=== PATIENT | male | born 2000 | race Caucasian/White ===

== ENCOUNTER 2019-08-30 01:42 | Emergency (ER) | payer OTHER ==
--- NOTE | 2019-08-30 02:09 | ED ---
Dizziness HPI - General Chief Complaint: Dizziness Stated Complaint: Dizziness, Cant Eat Time Seen by Provider: 08/30/19 01:57 Source: patient Mode of arrival: ambulatory Limitations: no limitations - History of Present Illness Initial Comments: This patient is 19-year-old man who presents to be evaluated for a constellation of symptoms that have started over the past few days. Patient states that what is most bothering him is that he is feeling like he has a fever and he is also lightheaded and having generalized fatigue. Patient states she also has had a nonproductive cough. Symptoms have been going on for the past few days. He states that his grandmother was just admitted in the hospital for fever and cough as well. Patient denies any chest pain. No dyspnea. No purulent sputum. MD Complaint: lightheadedness -: days(s) Timing: gradual onset History of Same: No History of Trauma: No Improves With: nothing Worsens With: exertion Associated Symptoms: cough, fever/chills - Related Data Home Medications Medication Instructions Recorded Confirmed No Known Home Medications 08/31/19 08/31/19 Allergies Allergy/AdvReac Type Severity Reaction Status Date / Time No Known Allergies Allergy Verified 08/31/19 16:21 Review of Systems ROS Statement: Those systems with pertinent positive or pertinent negative responses have been documented in the HPI. ROS Other: All systems not noted in ROS Statement are negative. Constitutional: Reports: fever Eyes: Denies: eye discharge ENT: Reports: congestion. Denies: throat pain Respiratory: Reports: cough. Denies: dyspnea, wheezes Cardiovascular: Denies: chest pain, palpitations Gastrointestinal: Denies: abdominal pain, vomiting, diarrhea Genitourinary: Denies: dysuria Musculoskeletal: Denies: back pain Skin: Denies: rash Neurological: Denies: headache, weakness, numbness Past Medical History Past Medical History: No Reported History History of Any Multi-Drug Resistant Organisms: None Reported Additional Past Surgical History / Comment(s): ablation Past Psychological History: No Psychological Hx Reported Smoking Status: Never smoker Past Alcohol Use History: None Reported Past Drug Use History: None Reported General Exam Limitations: no limitations General appearance: alert Head exam: Present: atraumatic, normocephalic Eye exam: Present: normal appearance. Absent: scleral icterus, conjunctival injection ENT exam: Present: normal oropharynx Neck exam: Present: normal inspection, full ROM Respiratory exam: Present: normal lung sounds bilaterally. Absent: respiratory distress, wheezes, rales, rhonchi, stridor Cardiovascular Exam: Present: normal rhythm, tachycardia, normal heart sounds. Absent: systolic murmur, diastolic murmur, rubs, gallop GI/Abdominal exam: Present: soft. Absent: distended, tenderness, guarding, rebound, rigid Extremities exam: Present: normal inspection, normal capillary refill. Absent: pedal edema, calf tenderness Back exam: Present: normal inspection Neurological exam: Present: alert Skin exam: Present: warm, dry, intact, normal color. Absent: rash Course Vital Signs 08/30/19 08/30/19 08/30/19 01:50 02:07 03:18 Temperature 102.2 F H 99.5 F 102.8 F H Pulse Rate 112 H 118 H Respiratory 22 20 Rate Blood Pressure 127/68 136/75 O2 Sat by Pulse 94 L 95 Oximetry 08/30/19 03:58 Temperature 101.2 F H Pulse Rate 97 Respiratory 17 Rate Blood Pressure 153/97 O2 Sat by Pulse 97 Oximetry Medical Decision Making - Medical Decision Making Patient is 19-year-old man with fever and cough. Discussed that there is risk of chronic virus and explained that the test is a send out. The patient will attempt to access results to my chart or contact the hospital if he is not able to. We discussed appropriate further care and the return parameters. Also discussed self-isolation. - Lab Data Lab Results 08/30/19 Range/Units 02:00 Coronavirus (PCR) Detected H (Not Detected) Disposition Clinical Impression: Viral syndrome Disposition: HOME SELF-CARE Condition: Good Instructions (If sedation given, give patient instructions): Viral Syndrome (ED) Is patient prescribed a controlled substance at d/c from ED?: No Referrals: None,Stated [Primary Care Provider] - 1-2 days
--- NOTE | 2019-08-30 02:20 | XR ---
EXAMINATION TYPE: XR chest 2V DATE OF EXAM: 08/30/2019 COMPARISON: NONE HISTORY: Cough. Fever TECHNIQUE: FINDINGS: Heart and mediastinum are normal. Lungs are clear of infiltrate. There is no heart failure. Costophrenic angles are clear. Bony thorax is intact. IMPRESSION: No active cardiopulmonary disease.
[2019-08-30] MEDS ORDERED: IBUPROFEN 400 MG TAB PO STA (03:10)
[2019-08-30] MEDS ORDERED: ACETAMINOPHEN TAB 325 MG TAB PO STA (03:19)
[2019-08-30] MEDS ORDERED: IBUPROFEN 600 MG STARTER PACK 4 TAB BTL PO STA (03:49)
[2019-08-30 03:59] VITALS: BP 153/97; PULSE 97; RESP 17; TEMP 101.2
== END 2019-08-30 03:59 | disposition home or self-care (01) ==
LOC: EC 01:42
DX: U07.1 COVID-19 (principal)
CPT/HCPCS: 99284; 71046; U0003

== ENCOUNTER 2019-08-31 14:08 | Emergency (ER) | payer OTHER ==
--- NOTE | 2019-08-31 15:39 | ED ---
General Adult HPI - General Chief complaint: Upper Respiratory Infection Stated complaint: Cough,Fever,chest tightness Time Seen by Provider: 08/31/19 15:27 Source: patient, family, RN notes reviewed, old records reviewed Mode of arrival: wheelchair Limitations: no limitations - History of Present Illness Initial comments: 19-year-old male presents for evaluation of cough, intermittent fevers. Patient was diagnosed with COVID yesterday. He states that he was instructed to come to the emergency department by his family member who wanted him reevaluated. He does report cough and decreased appetite. He denies dyspnea. He's had intermittent fevers. He has been sick for approximately 6 days. No vomiting or diarrhea. - Related Data Home Medications Medication Instructions Recorded Confirmed No Known Home Medications 08/31/19 08/31/19 Allergies Allergy/AdvReac Type Severity Reaction Status Date / Time No Known Allergies Allergy Verified 08/31/19 16:21 Review of Systems ROS Statement: Those systems with pertinent positive or pertinent negative responses have been documented in the HPI. ROS Other: All systems not noted in ROS Statement are negative. Past Medical History Past Medical History: No Reported History History of Any Multi-Drug Resistant Organisms: None Reported Additional Past Surgical History / Comment(s): ablation Past Psychological History: No Psychological Hx Reported Smoking Status: Never smoker Past Alcohol Use History: None Reported Past Drug Use History: None Reported General Exam Limitations: no limitations General appearance: alert, in no apparent distress Head exam: Present: atraumatic, normocephalic Eye exam: Present: normal appearance, PERRL ENT exam: Present: normal exam Neck exam: Present: normal inspection. Absent: tenderness, meningismus Respiratory exam: Present: normal lung sounds bilaterally. Absent: respiratory distress, wheezes, rales, rhonchi, decreased breath sounds Cardiovascular Exam: Present: regular rate, normal rhythm GI/Abdominal exam: Present: soft. Absent: distended, tenderness, guarding, rebound Extremities exam: Present: normal inspection, normal capillary refill. Absent: pedal edema, calf tenderness Neurological exam: Present: alert, oriented X3, CN II-XII intact. Absent: motor sensory deficit Skin exam: Present: warm, dry, intact. Absent: cyanosis, diaphoretic Course Vital Signs 08/31/19 08/31/19 14:46 16:49 Temperature 98.8 F 99.1 F Pulse Rate 99 98 Respiratory 18 16 Rate Blood Pressure 113/60 134/73 O2 Sat by Pulse 97 99 Oximetry Medical Decision Making - Medical Decision Making 19-year-old male with known COVID infection presenting for reevaluation. Patient has no dyspnea, he's not been vomiting. He's had somewhat of a decreased appetite and intermittent fevers. Overall is well-appearing, in no acute distress, no respiratory distress, he is breathing room air with normal saturation. Chest x-rays repeated, negative for signs of rotavirus infection, question infiltrate however I suspect this is overlying tissue. Patient is given return parameters and will continue to quarantine himself. Disposition Clinical Impression: COVID-19 Disposition: HOME SELF-CARE Condition: Good Instructions (If sedation given, give patient instructions): Viral Syndrome (ED) Additional Instructions: Please self quarantined for 14 days. Is patient prescribed a controlled substance at d/c from ED?: No Referrals: None,Stated [Primary Care Provider] - 1-2 days Samuel Oswald [STAFF PHYSICIAN] - 1-2 days Time of Disposition: 16:59
--- NOTE | 2019-08-31 16:18 | XR ---
EXAMINATION TYPE: XR chest 1V portable DATE OF EXAM: 08/31/2019 Comparison: 08/30/2019 Clinical History: 19-year-old male cough Findings: Very low lung volumes. Vascular markings are crowded. In addition, there is large patient body habitu s causing hazy densities. The peripheral left base is underpenetrated. Patchy medial right basilar op acity could represent crowded structures. No sizable effusion seen. Impression: Limited portable view further limited by hypoventilatory changes and large body habitus. Patchy media l right basilar opacity could represent crowded structures rather than early infiltrate.
[2019-08-31 16:49] VITALS: BP 134/73; PULSE 98; RESP 16; TEMP 99.1
== END 2019-08-31 17:17 | disposition home or self-care (01) ==
LOC: EC 14:08
DX: U07.1 COVID-19 (principal)
CPT/HCPCS: 71045; 99285

== ENCOUNTER 2023-10-27 11:23 | Emergency (ER) | payer OTHER ==
[2023-10-27] MEDS ORDERED: AMOXIC-POT CLAV 875-125MG 1 EACH TAB ONE (13:04)
[2023-10-27] MEDS ORDERED: dexAMETHasone 4 MG TAB ONE (13:04)
== END 2023-10-27 14:35 | disposition left against medical advice (07) ==
LOC: EC 11:23
CPT/HCPCS: 99283

== ENCOUNTER 2024-01-04 01:57 | Emergency (ER) | payer OTHER ==
[2024-01-04 02:03] VITALS: TEMP 98.5
--- NOTE | 2024-01-04 02:29 | ED ---
Extremity Problem HPI - General Chief complaint: Extremity Injury, Lower Stated complaint: L Toe Numbness Time Seen by Provider: 01/04/24 02:04 Source: patient, RN notes reviewed Mode of arrival: ambulatory Limitations: no limitations - History of Present Illness Initial comments: This is a 23-year-old male who presents to the emergency department for numbness in his toes. States that for the last 2 to 3 weeks he has had numbness in the first, second and third toe on his left foot. Denies any injuries. States that the numbness does not go up the leg or foot, it is all localized in the toes. Denies any pain associated with this. He has not had any fevers/chills or pain in the back either. Denies any loss of bowel/bladder control or saddle ane sthesia. Patient then goes on to ask if I can prescribe him Suboxone. He states that he recently got this from a hospital in [place] and wants to know if we can give it to him here. - Related Data Home Medications Medication Instructions Recorded Confirmed No Known Home Medications 08/31/19 08/31/19 Allergies Allergy/AdvReac Type Severity Reaction Status Date / Time No Known Allergies Allergy Verified 01/04/24 02:03 Review of Systems ROS Statement: Those systems with pertinent positive or pertinent negative responses have been documented in the HPI. ROS Other: All systems not noted in ROS Statement are negative. Past Medical History Past Medical History: No Reported History History of Any Multi-Drug Resistant Organisms: None Reported Additional Past Surgical History / Comment(s): ablation Past Psychological History: No Psychological Hx Reported Smoking Status: Never smoker Past Alcohol Use History: None Reported Past Drug Use History: None Reported General Exam Limitations: no limitations General appearance: alert, in no apparent distress Head exam: Present: atraumatic, normocephalic, normal inspection Respiratory exam: Present: normal lung sounds bilaterally. Absent: respiratory distress, wheezes, rales, rhonchi, stridor Cardiovascular Exam: Present: regular rate, normal rhythm, normal heart sounds. Absent: systolic murmur, diastolic murmur, rubs, gallop, clicks Extremities exam: Present: other (No swelling, discoloration, temperature changes, or tenderness to the left foot or toes. 2+ DP and PT pulses bilaterally. Capillary refill less than 1 second.) Back exam: Present: other (No tenderness over the back. No overlying skin changes.) Neurological exam: Present: alert, oriented X3, CN II-XII intact Psychiatric exam: Present: normal affect, normal mood Skin exam: Present: warm, dry, intact, normal color. Absent: rash Course Vital Signs 01/04/24 01/04/24 02:00 02:50 Temperature 98.5 F Pulse Rate 109 H 85 Respiratory 20 16 Rate Blood Pressure 125/81 116/72 O2 Sat by Pulse 96 100 Oximetry Medical Decision Making - Medical Decision Making This is a 23-year-old male who presents to the emergency department for paresthesias in his left toes. Was pt. sent in by a medical professional or institution? @ -No Did you speak to anyone other than the patient for history? @ -No Did you review nursing and triage notes? @ -Yes, and I agree, it is accurate with regards to the patient's symptoms. Were old charts reviewed? @ -No Differential Diagnosis? @ -Nerve root compression, vascular disorder, vitamin or nutritional deficiency, diabetes mellitus, this is not meant to be an all-inclusive list. EKG interpreted by me (3pts min.)? @ -Not obtained X-rays interpreted by me (1pt min.)? @ -Not obtained CT interpreted by me (1pt min.)? @ -Not obtained U/S interpreted by me (1pt. min.)? @ -Not obtained What testing was considered but not performed? (CT, X-rays, U/S, labs)? Why? @ -None What meds were considered but not given? Why? @ -None Did you discuss the management of the patient with other professionals? @ -No Did you reconcile home meds? @ -No Was smoking cessation discussed for >3mins.? @ -No Was critical care preformed (if so, how long)? @ -No Were there social determinants of health that impacted care today? How? (Homel essness, low income, unemployed, alcoholism, drug addiction, transportation, low edu. Level, literacy, decrease access to med. care, [facility], rehab)? @ -No Was there de-escalation of care discussed even if they declined? (Discuss DNR or withdrawal of care, Hospice)? @ -No What co-morbidities impacted this encounter? (DM, HTN, Smoking, COPD, CAD, Can cer, CVA, Hep., AIDS, mental health diagnosis, sleep apnea, morbid obesity)? @ -None Was patient admitted / discharged? @ -Discharged. Physical examination of the left foot revealed no irregularities. His foot was warm and well-perfused. There were no skin changes. He had no signs of trauma. Given the duration of his symptoms and physical exam, advised that there is no imaging that would be indicated at this point. Also discussed with the patient that we do not have Suboxone here and this is not something we are able to prescribe him with. He will need to follow-up with a Suboxone clinic and he was advised to look into [place]. He was also given a list of local primary care providers to become established with for ongoing medical care and reevaluation of the paresthesias in his left foot. Patient discharged home in stable condition. Case discussed with ED attending Dr. Andrade. Return precautions reviewed in depth, the patient is instructed to return to the emergency department with any new, worsening, or concerning symptoms. Patient verbalized understanding. Undiagnosed new problem with uncertain prognosis? @ -None Drug Therapy requiring intensive monitoring for toxicity (Heparin, Nitro, Insulin, Cardizem)? @ -None Were any procedures done? @ -None Diagnosis/symptom? @ -Paresthesias of left toes Acute, or Chronic, or Acute on Chronic? @ -Acute Uncomplicated (without systemic symptoms) or Complicated (systemic symptoms)? @ -Uncomplicated Side effects of treatment? @ -None Exacerbation, Progression, or Severe Exacerbation] @ -Not applicable Poses a threat to life or bodily function? @ -No Disposition Clinical Impression: Paresthesia of foot Disposition: HOME SELF-CARE Condition: Stable Instructions (If sedation given, give patient instructions): Paresthesia (ED) Additional Instructions: Return to the emergency department with any new, worsening, or concerning symptoms. We do not have Suboxone at this facility and we are unable to prescribe it here. You will need to become established with a Suboxone clinic like the one at [facility]. Review the list of local primary care providers provided below to become established for ongoing care and further evaluation of the numbness in your toes. Is patient prescribed a controlled substance at d/c from ED?: No Referrals: None,Stated [Primary Care Provider] - 1-2 days Forms: [facility], [facility] Time of Disposition: 02:29
[2024-01-04 02:53] VITALS: BP 116/72; PULSE 85; RESP 16
== END 2024-01-04 02:56 | disposition home or self-care (01) ==
LOC: EC 01:57
DX: R20.2 Paresthesia of skin (principal)
CPT/HCPCS: 99283

== ENCOUNTER 2024-08-17 14:57 | Inpatient (IN) | payer OTHER, MEDICAID ==
--- NOTE | 2024-08-17 18:59 | ED ---
Psych HPI - General Source: patient, RN notes reviewed Mode of arrival: ambulatory <Maria G Mg - Last Filed: 08/17/24 18:58> - General Source: patient, RN notes reviewed <Yulisa Frank - Last Filed: 08/17/24 21:36> - General Chief Complaint: Psychiatric Symptoms Stated Complaint: Mental health eval Time Seen by Provider: 08/17/24 16:09 - History of Present Illness Initial Comments: Quick note: 23-year-old male presented the ER for mental health evaluation. Patient mitts to with plan. (Maria G Mg) 23-year-old male presenting for suicidal ideation x 3 days. States he is hearing voices inside of his head telling him to kill himself. States he contemplated overdosing today but ultimately decided against it. Also is thinking about slicing his wrists. States it has been about 4 years since he has experienced the symptoms. Admits to using illicit drugs however states it has been over a week and a half since last use. Denies homicidal ideation. (Yulisa Frank) - Related Data Home Medications Medication Instructions Recorded Confirmed No Known Home Medications 08/31/19 08/31/19 Allergies Allergy/AdvReac Type Severity Reaction Status Date / Time No Known Allergies Allergy Verified 04/24/24 18:17 Review of Systems ROS Other: All systems not noted in ROS Statement are negative. <Maria G Mg - Last Filed: 08/17/24 18:58> ROS Other: All systems not noted in ROS Statement are negative. <Yulisa Frank - Last Filed: 08/17/24 21:36> ROS Statement: Those systems with pertinent positive or pertinent negative responses have been documented in the HPI. Past Medical History Past Medical History: Hypertension Additional Past Medical History / Comment(s): insomnia History of Any Multi-Drug Resistant Organisms: None Reported Additional Past Surgical History / Comment(s): ablation Past Psychological History: ADD/ADHD, Bipolar Smoking Status: Never smoker Past Alcohol Use History: None Reported Past Drug Use History: None Reported <Maria G Mg - Last Filed: 08/17/24 18:58> General Exam Limitations: no limitations <Maria G Mg - Last Filed: 08/17/24 18:58> General appearance: alert, in no apparent distress Head exam: Present: atraumatic, normocephalic, normal inspection Eye exam: Present: normal appearance, PERRL, EOMI. Absent: scleral icterus, conjunctival injection, periorbital swelling Neurological exam: Present: alert, oriented X3, CN II-XII intact Psychiatric exam: Present: normal affect, normal mood, suicidal ideation. Absent: homicidal ideation Skin exam: Present: warm, dry, intact, normal color. Absent: rash <Yulisa Frank - Last Filed: 08/17/24 21:36> - General Exam Comments Initial Comments: Visual Physical Exam Vital signs reviewed General: Well-appearing, nontoxic, no acute distress. Head: Normocephalic, atraumatic Eyes: PERRLA, EOMI ENT: Airway patent Chest: Nonlabored breathing Skin: No visual rash, normal skin tone Neuro: Alert and oriented 3 Musculoskeletal: No gross abnormalities (Maria G Mg) Course Vital Signs 08/17/24 15:00 Temperature 98 F Pulse Rate 68 Respiratory 16 Rate Blood Pressure 133/73 O2 Sat by Pulse 98 Oximetry Medical Decision Making <Maria G Mg - Last Filed: 08/17/24 18:58> <Yulisa Frank - Last Filed: 08/17/24 21:36> - Medical Decision Making I performed the quick note portion of this chart. Electronically signed by Maria G Mg PA-C (Maria G Mg) Was pt. sent in by a medical professional or institution (RUPAL Irvin, PATTERN ROOM ATTENDANT, urgent care, hospital, or skilled nursing...) When possible be specific @ -No Did you speak to anyone other than the patient for history (EMS, parent, family, police, friend...)? What history was obtained from this source @ -No Did you review nursing and triage notes (agree or disagree)? Why? @ -I reviewed and agree with nursing and triage notes Were old charts reviewed (outside hosp., previous admission, EMS record, old EKG, old radiological studies, urgent care reports/EKG's, skilled nursing records)? Report findings @ -No old charts were reviewed Differential Diagnosis (chest pain, altered mental status, abdominal pain women, abdominal pain men, vaginal bleeding, weakness, fever, dyspnea, syncope, headache, dizziness, GI bleed, back pain, seizure, CVA, palpatations, mental health, musculoskeletal)? @ -Differential Mental Health Depression, anxiety, bipolar, psychosis, schizophrenia, borderline personality, situational depression, adjustment disorder, behavioral disorder, brain tumor, malingering, substance abuse, encephalopathy, medication reaction, dementia, hypothyroidism, degenerative neurologic disorder, lupus.... This is not meant to be all-inclusive list EKG interpreted by me (3pts min.). @ -None X-rays interpreted by me (1pt min.). @ -None done CT interpreted by me (1pt min.). @ -None done U/S interpreted by me (1pt. min.). @ -None done What testing was considered but not performed or refused? (CT, X-rays, U/S, labs)? Why? @ -None What meds were considered but not given or refused? Why? @ -None Did you discuss the management of the patient with other professionals (professionals i.e. , PA, PATTERN ROOM ATTENDANT, lab, RT, psych nurse, social worker clinical, family lawyer, teacher, neighborhood conservation officer, case assembler)? Give summary @ -I spoke with EPS who determined patient does meet inpatient criteria for psychiatric admission at this time Was smoking cessation discussed for >3mins.? @ -No Was critical care preformed (if so, how long)? @ -No Were there social determinants of health that impacted care today? How? (Homelessness, low income, unemployed, alcoholism, drug addiction, transportation, low edu. Level, literacy, decrease access to med. care, [facility], rehab)? @ -No Was there de-escalation of care discussed even if they declined (Discuss DNR or withdrawal of care, Hospice)? DNR status @ -No What co-morbidities impacted this encounter? (DM, HTN, Smoking, COPD, CAD, Cancer, CVA, ARF, Chemo, Hep., AIDS, mental health diagnosis, sleep apnea, morbid obesity)? @ -None Was patient admitted / discharged? Hospital course, mention meds given and route, prescriptions, significant lab abnormalities, going to OR and other pertinent info. @ -23-year-old male presenting for suicidal ideation x 3 days. States he is hearing voices inside of his head telling him to kill himself. No other medical complaints at this time. Patient is medically cleared to be seen by EPS. Patient was evaluated by EPS who determined patient does meet inpatient criteria for psychiatric admission at this time. I agree with this plan. Patient signed himself in voluntarily. Case was discussed with my ED attending Dr. Sanabria Undiagnosed new problem with uncertain prognosis? @ -No Drug Therapy requiring intensive monitoring for toxicity (Heparin, Nitro, Insulin, Cardizem)? @ -[No Were any procedures done? @ -No Diagnosis/symptom? @ -Suicidal ideation Acute, or Chronic, or Acute on Chronic? @ - acute Uncomplicated (without systemic symptoms) or Complicated (systemic symptoms)? @ -Complicated Side effects of treatment? @ -No Exacerbation, Progression, or Severe Exacerbation? @ -No Poses a threat to life or bodily function? How? (Chest pain, USA, DC, pneumonia, PE, COPD, DKA, ARF, appy, cholecystitis, CVA, Diverticulitis, Homicidal, Suicidal, threat to staff... and all critical care pts) @ -Yes, suicidal (Yulisa Frank) - Lab Data Lab Results 08/17/24 Range/Units 20:01 Urine Opiates Screen Not Detected (NotDetected) Ur Oxycodone Screen Not Detected (NotDetected) Urine Methadone Screen Not Detected (NotDetected) Ur Barbiturates Screen Not Detected (NotDetected) U Tricyclic Antidepress Not Detected (NotDetected) Ur Phencyclidine Scrn Not Detected (NotDetected) Ur Amphetamines Screen Not Detected (NotDetected) U Methamphetamines Scrn Detected H (NotDetected) U Benzodiazepines Scrn Not Detected (NotDetected) Urine Cocaine Screen Not Detected (NotDetected) U Marijuana (THC) Screen Not Detected (NotDetected) Disposition <Maria G Mg - Last Filed: 08/17/24 18:58> Time of Disposition: 21:36 <Yulisa Frank - Last Filed: 08/17/24 21:36> Clinical Impression: Suicidal ideation Disposition: ADMITTED IP TO THIS HOSP Referrals: None,Stated [Primary Care Provider] - 1-2 days
[2024-08-17 20:52] LABS: Amphetamine Screen,Urine Not Detected (NotDetected); Barbiturate Screen,Urine Not Detected (NotDetected); Benzodiazepines Screen,Urine Not Detected (NotDetected); Cocaine Screen,Urine Not Detected (NotDetected); Methadone Screen, Urine Not Detected (NotDetected); Opiate Screen,Urine Not Detected (NotDetected); Oxycodone Screen, Urine Not Detected (NotDetected); Phencyclidine Screen,Urine Not Detected (NotDetected); Tricyclic Antidepressant,Urine Not Detected (NotDetected); Urn Cannabinoid Scrn Not Detected (NotDetected)
[2024-08-17 22:12] LABS: Influenza A Not Detected (Not Detectd); Influenza B Not Detected (Not Detectd); RSV Not Detected (Not Detectd)
[2024-08-18] MEDS ORDERED: haloperidoL 5 MG TAB PO PRN (00:55)
[2024-08-18] MEDS ORDERED: MAG HYDROX/AL HYDROX/SIMETH 355 ML BOTTLE PO PRN (00:55)
[2024-08-18] MEDS ORDERED: LORazepam 1 MG/0.5 ML VIAL IM PRN (00:55)
[2024-08-18] MEDS ORDERED: ACETAMINOPHEN TAB 325 MG TAB PO PRN (00:55)
[2024-08-18] MEDS ORDERED: HALOPERIDOL LACTATE 5 MG/ML 1 ML VIAL IM PRN (00:55)
[2024-08-18] MEDS ORDERED: MAGNESIUM HYDROXIDE 2,400 MG/30 ML CUP PO PRN (00:55)
[2024-08-18] MEDS: NICOTINE 14MG/24HR PATCH TRANSDERM SCH (09:43)
[2024-08-18 10:31] LABS: Appearance,Urine Clear (Clear); Bilirubin,Urine Negative (Negative); Blood,Urine Negative (Negative); Color,Urine Colorless; Glucose,Urine (UA) Negative (Negative); Ketones,Urine Negative (Negative); Leukocyte Esterase,Urine Small (Negative); Mucus,Urine Rare /hpf; Nitrite,Urine Negative (Negative); Protein,Urine Negative (Negative); RBC,Urine 2 /hpf (0-5); Specific Gravity,Urine 1.023 (1.001-1.035); Urobilinogen,Urine <2.0 mg/dL (<2.0); WBC,Urine 42 /hpf (0-5)
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
[2024-08-18] MEDS: SERTRALINE 50 MG TAB PO SCH (12:34)
--- NOTE | 2024-08-19 10:12 | P.PN ---
Progress Note - Text Progress Note Date: 08/19/24 Chief complaint: Suicidal thoughts Interval History: Patient was seen wandering the hallways and was directable and agreeable to speak with writer technical publications in the office. The patient notes that today he is not having any thoughts of killing himself or harming others. He notes that his depression is still there but it is currently mild. He denies any ongoing anxiety. He states that he is not having the voices any more or seeing things. He notes that he is not paranoid. When asking about sleep he notes "a little bit". He notes that his energy and appetite have not changed since yesterday. He had stated that his concentration is not good. We did attempt to contact the patient's grandmother for a conference call however there was a busy signal. Mental Status Exam: General Appearance: Patient appears to be stated age is alert, directable, and cooperative. Behavior: Patient is calmly seated without any agitated behavior. Speech: Speech was improved from yesterday where patient had trouble getting out of his words and was able to formulate his words better. Mood/Affect: Mood is improving mildly, affect is congruent and constricted. Suicidality/Homicidality: Patient denies having any suicidal or homicidal ideation intent or plan. Perceptions: Patient denies any visual hallucinations and denies any auditory hallucinations Though content/process: There is no evidence of any delusional thought content and thought process is linear and goal-directed. Memory and concentration: AOX3, grossly intact for the purposes of this session Judgment and insight: Improving mildly Diagontic Major depressive disorder recurrent severe Generalized anxiety disorder Methamphetamine use disorder R/O Intellectual disability Assessment: Patient appears to be doing better today could be due to the structure environment. There are concerns of discharging him with him decompensating and returning to the emergency room. Disposition plan needs to be with housing or long term including unit. PLAN: -Patient is admitted under voluntary status to MHU for stabilization of psychiatric symptoms and safety. Patient has signed adult voluntary form and medication consent and is placed in patient's chart. -Medications : Continue Zoloft 50 mg take 1 tablet by mouth once daily for depression/anxiety -Ativan and Haldol PRN for agitation/aggression -Patient was counselled on substance abuse and desired to cut back on use -Will offer patient subtance use rehab -Patient was informed of the risks, benefits and side effects of the medication and patient verbally consented to taking the medications. Patient signed med consent form and was placed in chart. -Internal Medicine consult to perform medical evaluation and physical. -NRT -not needed as patient does not smoke -SW on board for discharge planning. Encourage patient to participate in groups to work on coping skills.
--- NOTE | 2024-08-19 10:23 | P.PN ---
Progress Note - Text Progress Note Date: 08/19/24 Chief complaint: Suicidal-homicidal Interval History: Patient was seen wandering the hallways and was directable and agreeable to speak with communications writer in the office. The patient was very emotional today and broke out into tears. He notes that this was precipitated by groups where he felt like he does not help anybody. Then the patient notes that he wanted to go on the and his mother sabotaged it. The patient focused on how his mother wants his life. He currently rates his depression 6/10 and his anxiety 0/10. He denies any anger issues. He denies any suicidal or homicidal ideations. He was unable to discuss how much sleep he got last night. He he notes that his energy is good but has stated that he has a decline in his appetite as well as concentration. Overall he states he feels "a bit slow". Mental Status Exam: General Appearance: Patient appears to be stated age is alert, directable, and cooperative. Behavior: The patient was very emotional and tearful Speech: Patient's speech is fluent and nonpressured. Mood/Affect: Mood is declined, affect is congruent and constricted. Suicidality/Homicidality: Patient denies having any suicidal or homicidal ideation intent or plan. Perceptions: Patient denies any visual hallucinations and denies any auditory hallucinations Though content/process: There is no evidence of any delusional thought content and thought process is linear and goal-directed. Memory and concentration: AOX3, grossly intact for the purposes of this session Judgment and insight: Improving mildly Diagontic Major depressive disorder recurrent severe Generalized anxiety disorder Methamphetamine use disorder R/O Intellectual disability Assessment: Patient became very emotional in group when he was processing them projected his anger towards his mother. Patient does not appear to be completely stable at this point and would be at risk if discharged at this time. PLAN: -Patient is admitted under voluntary status to MHU for stabilization of psychiatric symptoms and safety. Patient has signed adult voluntary form and medication consent and is placed in patient's chart. -Medications : Continue Zoloft 50 mg take 1 tablet by mouth once daily for depression/anxiety -Ativan and Haldol PRN for agitation/aggression -Patient was counselled on substance abuse and desired to cut back on use -Will offer patient subtance use rehab -Patient was informed of the risks, benefits and side effects of the medication and patient verbally consented to taking the medications. Patient signed med consent form and was placed in chart. -Internal Medicine consult to perform medical evaluation and physical. -NRT -not needed as patient does not smoke -SW on board for discharge planning. Encourage patient to participate in groups to work on coping skills.
[2024-08-19] MEDS: BENZOCAINE 20 % GEL 11.9 GM TUBE MM ONE (20:06)
[2024-08-20] MEDS: BENZOCAINE 20 % GEL 11.9 GM TUBE MM PRN (10:47)
--- NOTE | 2024-08-20 11:39 | P.PN ---
Progress Note - Text Progress Note Date: 08/20/24 Chief complaint: Suicidal Interval History: Patient was seen wandering the hallways and was directable and agreeable to speak with display card writer in the office. The patient notes that he is doing "okay". He denies any side effects with the Zoloft. He notes that he has not been attending groups because nobody tells him. He denies any feeling of depression or anxiety at this time. He notes that he is sleeping throughout the night but has to take naps during the day. He denies any problems with energy, appetite or concentration. He denies any suicidal or homicidal ideations. We did try to contact his grandmother for a conference call twice today however there was no answer. The patient notes that he has an unknown meeting at 2 PM on Thursday that he was informed about by his girl. Mental Status Exam: General Appearance: The patient presented to his stated age, dressed appropriately and groomed Behavior: Patient is calmly seated without any agitated behavior. Speech: Patient's speech is fluent and nonpressured. Mood/Affect: Mood is improving mildly, affect is congruent and constricted. Suicidality/Homicidality: Patient denies having any suicidal or homicidal ideation intent or plan. Perceptions: Patient denies any visual hallucinations and denies any auditory hallucinations Though content/process: There is no evidence of any delusional thought content and thought process is linear and goal-directed. Memory and concentration: AOX3, grossly intact for the purposes of this session Judgment and insight: Improving mildly Diagontic Major depressive disorder recurrent severe Generalized anxiety disorder Methamphetamine use disorder R/O Intellectual disability Assessment: The patient is doing better today and appears that he is stabilizing. We continue to try to get collateral information from the patient's grandmother. It appears that he has an intake appointment at 2 PM on Thursday which needs clarification. Complete hospitalization and transition to community mental health upon discharge. PLAN: -Patient is admitted under voluntary status to MHU for stabilization of psychiatric symptoms and safety. Patient has signed adult voluntary form and medication consent and is placed in patient's chart. -Medications : Continue Zoloft 50 mg take 1 tablet by mouth once daily for depression/anxiety -Ativan and Haldol PRN for agitation/aggression -Patient was counselled on substance abuse and desired to cut back on use -Will offer patient subtance use rehab -Patient was informed of the risks, benefits and side effects of the medication and patient verbally consented to taking the medications. Patient signed med consent form and was placed in chart. -Internal Medicine consult to perform medical evaluation and physical. -NRT -not needed as patient does not smoke -SW on board for discharge planning. Encourage patient to participate in groups to work on coping skills.
[2024-08-20] MEDS: IBUPROFEN 600 MG TAB PO PRN (17:11)
[2024-08-21 09:08] VITALS: RESP 18
--- NOTE | 2024-08-21 10:44 | P.PN ---
Progress Note - Text Progress Note Date: 08/21/24 Chief complaint: Suicidal thoughts Interval History: Patient was seen wandering the hallways and was directable and agreeable to speak with narrative writer in the office. While patient was present we called his grandmother Simona who answered. She confirmed that the patient has intellectual disability high functioning. She also noted that the patient once he gets his disability check people go to him in order to get money so they could use drugs. She notes that he has an appointment at [facility] for an interview to get placement. Patient notes that he is doing "okay". He denies any ongoing depression or anxiety. He notes that he is getting too much sleep. He denies any problems with energy, appetite or concentration. At this time patient denies any suicidal or homical ideations, intent or plan. Patient denies any auditory, visual hallucinations and denies any paranoia or delusions. Patient denies any side effects from the medications and has been compliant with meds. Mental Status Exam: General Appearance: Patient appears to be stated age is alert, directable, and c ooperative. Behavior: Patient is calmly seated without any agitated behavior. Speech: Patient's speech is fluent and nonpressured. Mood/Affect: Mood is improving mildly, affect is congruent and constricted. Suicidality/Homicidality: Patient denies having any suicidal or homicidal ideation intent or plan. Perceptions: Patient denies any visual hallucinations and denies any auditory hallucinations Though content/process: There is no evidence of any delusional thought content and thought process is linear and goal-directed. 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 Assessment: Patient appears to be stabilizing at this point and is felt that he does need a payee but the patient is extremely resistant to this. He does have an appointment tomorrow for the longterm at [facility] at 2 PM. PLAN: -Patient is admitted under voluntary status to MHU for stabilization of psychiatric symptoms and safety. Patient has signed adult voluntary form and medication consent and is placed in patient's chart. -Medications : Continue Zoloft 50 mg take 1 tablet by mouth once daily for depression/anxiety -Ativan and Haldol PRN for agitation/aggression -Patient was counselled on substance abuse and desired to cut back on use -Will offer patient subtance use rehab -Patient was informed of the risks, benefits and side effects of the medication and patient verbally consented to taking the medications. Patient signed med consent form and was placed in chart. -Internal Medicine consult to perform medical evaluation and physical. -NRT -not needed as patient does not smoke -SW on board for discharge planning. Encourage patient to participate in groups to work on coping skills.
--- NOTE | 2024-08-21 15:19 | P.MDCNMH ---
History of Present Illness H&P Date: 08/21/24 Chief Complaint: Medical consult 23-year-old man with medical history of obesity class I, major depressive disorder presented for mental health evaluation. Medicine was consulted for medical management. Patient has no complaints at this time and does not take any chronic medications. He does require establishment with a PCP upon discharge. Review of systems is negative. Patient is hemodynamically stable. Urine tox screen is positive for methamphetamine, urinalysis shows 42 white blood cells, small leukocyte esterase, otherwise unremarkable. Influenza A, B, RSV, COVID are negative. Gen: in no apparent distress, resting comfortably in bed Eyes: PERRL, no scleral injection or icterus HENT: normocephalic, atraumatic, good hearing acuity, moist mucous membranes Neck: no tracheal deviation, full range of motion Resp: good air exchange, breathing comfortably with no accessory muscle use, no tactile fremitus CVS: good distal perfusion x 4, no pitting edema GI: soft, NTTP, ND, no hepatosplenomegaly : no suprapubic tenderness, no CVAT, dimas catheter not present MSK: no clubbing, no cyanosis, no noted contractures of extremities Skin: no noted rashes, petechiae; temperature of skin is appropriate Neuro: moving all extremities without signs of weakness, CN II-XII intact Psych: cooperative, euthymic mood, insight and judgment intact Assessment/plan: Obesity class I -Lifestyle modification education upon discharge - Outpatient follow-up and establishment with PCP Methamphetamine abuse - Cessation counseling Thank you for this consult. Please feel free to reach out with any questions or concerns. Past Medical History Past Medical History: Hypertension Additional Past Medical History / Comment(s): insomnia History of Any Multi-Drug Resistant Organisms: None Reported Additional Past Surgical History / Comment(s): ablation Past Anesthesia/Blood Transfusion Reactions: No Reported Reaction Past Psychological History: ADD/ADHD, Bipolar Smoking Status: Never smoker Past Alcohol Use History: None Reported Past Drug Use History: None Reported Medications and Allergies Home Medications Medication Instructions Recorded Confirmed Type No Known Home Medications 08/31/19 08/31/19 History Allergies Allergy/AdvReac Type Severity Reaction Status Date / Time No Known Allergies Allergy Verified 04/24/24 18:17 Physical Exam Osteopathic Statement: *. No significant issues noted on an osteopathic structural exam other than those noted in the History and Physical/Consult. Vitals: Vital Signs Temp Pulse Resp BP Pulse Ox 08/21/24 09:00 96.9 F L 116 H 18 107/60 98 08/20/24 21:00 97.5 F L 96 17 113/73 100 Cranial Nerve Examination - Cranial Nerves Cranial Nerve II- Optic: Intact Cranial Nerve III- Oculomotor: Intact Cranial Nerve IV- Trochlear: Intact Cranial Nerve V- Trigeminal: Intact Cranial Nerve - Abducens: Intact Cranial Nerve VII- Facial: Intact Cranial Nerve VIII- Auditory: Intact Cranial Nerve IX- Glossopharyngeal: Intact Cranial Nerve X- Vagus: Intact Cranial Nerve XI- Accessory: Intact Cranial Nerve XII- Hypoglossal: Intact
[2024-08-21] MEDS: LORazepam 1 MG TAB PO PRN (20:50)
[2024-08-22 08:09] VITALS: BP 116/77; PULSE 95; TEMP 97.6
--- NOTE | 2024-08-22 09:55 | P.DS ---
Providers Date of admission: 08/18/24 00:45 Admission HPI: Admission note was completed by Dr. Parra "The patient presented to the hospital voicing that he was having suicidal thoughts and auditory hallucinations telling him to kill himself. The patient denies any auditory or visual hallucinations. He does note that he was having suicidal thoughts. He notes that he had a plan of overdosing on his medication when he started thinking about his grandmother and did not do it. He is kind of ambiguous about whether he is regretful of this. He notes that he might harm himself if he left today. UDS was positive for methamphetamines but the patient has adamant that he has not used any methamphetamines for 1.5 months. Patient notes that he is currently depressed because he has no place to live and lives with regret. Patient currently rates his depression 5/10 and his anxiety 9/10 with 10 being worst. He notes that he struggles with his sleep and only gets 6 to 7 hours at night. He feels fatigued and rundown. He notes that he struggles with his concentration. He notes that his appetite is normal. He feels hopeless. He denies any crying but notes that he has feelings of guilt. He denies any suicidal or homicidal ideations." Hospital course: Upon admission to the unit patient was directable and agreeable to commence joel atment and signed adult voluntary form. Patient got along well with other patients on the unit and followed unit protocol. Patient was compliant with the medications and denied any side effects throughout hospital course. Patient was started on Zoloft 50 mg to target anxiety and depression. Patient spoke of his stressors and engaged in therapy both group and individual. Patient was also seen by medical team for history and physical exam. Throughout the course of the hospitalization patient gradually improved with regards to mood, anxiety, sleep and returned back to their baseline level of functioning became more future oriented with improved insight and judgment. On the day of discharge patient denied any suicidal or homicidal ideations intent or plan denied any auditory or visual hallucinations. Patient endorsed wanting to live for their health and family. The patient denied any access to guns or weapons. Patient denied any paranoia and did not endorse any delusions. Patient does have a significant history of substance abuse and was counseled on abstaining from all substances including alcohol and marijuana. Patient was offered however declined inpatient substance-abuse rehab. Patient was also counseled on the medications and need for regular compliance and was encouraged to follow-up with their outpatient appointment for mental health and also for primary care. Prior to discharge a family meeting will be arranged by aids social worker to answer any questions and ensure safety upon discharge incuding making sure that guns/weapons are either removed from the home or locked away.. Discharge patient was reminded that using meth, coke or cannabis was he wants to be readmitted. He denies any suicidal or homicidal ideations. He was able to voice a safety plan including 911, [phone] and 100 nearest emergency room was. He notes no depression or anxiety. He denied any problems with sleep, energy, appetite or concentration. Plans are that he follows up with his grandmother at the [facility] for an appointment at 2 PM for possible admission. Mental status exam: General Appearance: Patient appears to be his stated age is alert, pleasant, and cooperative. Patient is in no acute distress and has improved hygiene and grooming Behavior: Patient is calmly seated without any agitated behavior. Speech: Patient's speech is fluent and nonpressured. Mood/Affect: Patient reports their mood is "better good", affect is congruent and euthymic. Suicidality/Homicidality: Patient denies having any suicidal or homicidal ideation intent or plan. Perceptions: Patient denies any auditory or visual hallucinations. Though content/process: There is no evidence of any delusional thought content and thought process is linear and goal-directed. More future oriented Memory and concentration: AOX3, grossly intact for the purposes of this session. Can spell "WORLD" backwards correctly. Judgment and insight: Chronically poor, however has improved with guarded progn osis Diagontic Major depressive disorder recurrent mild Generalized anxiety disorder Methamphetamine use disorder Intellectual disability high functioning. Plan: -Continue with discharge today as patient has improved and stabilized psychiatrically and is not currently an imminent threat to themself and/or others. Patient will remain at chronically elevated risk for harm to self and/or others due to their impulsivity and substance abuse. -Continue medications: Zoloft 50 mg take 1 tablet by mouth once daily for depression/anxiety -Patient was counseled on the need for medication compliance and appropriate follow-up at mental health and also primary care for medical issues. Patient verbalized understanding and agreed. -Social work to help coordinate patients discharge today arrange for and conduct family meeting to ensure safety upon discharge and answer any questions/concerns. also to ensure safe home environment that guns/weapons are either removed from the home or locked away. Social work also to arrange for patients follow up appointments with [facility] for psychiatric care along with follow up with primary care provider. -Patient counseled on abstaining from recreational drugs and marijuana and alcohol. Was informed/educated on the adverse effects on their physical and mental health. Patient verbally agreed and understood. Patient was offered substance abuse treatment however declined at this time. -Patient was instructed to return to the hospital or seek immediate medical care if their psychiatric or medical symptoms do worsen or reoccur. Attending physician: Ibrahima Jesus MD Consults: 08/18/24 00:55 Consult Physician Routine Consulting Provider: Max Physician Consult Reason/Comments: Medical H&P Do you want consulting provider notified?: Yes Primary care physician: Stated None Plan - Discharge Summary Discharge Rx Participant: Yes New Discharge Prescriptions: No Action No Known Home Medications Discharge Medication List No Known Home Medications 08/31/19 [History] Follow up Appointment(s)/Referral(s): None,Stated [Primary Care Provider] - 1-2 days Activity/Diet/Wound Care/Special Instructions: Avoid the use of street drugs and alcohol. Take all medications as prescribed. When you are in need of refills on your medications, please contact your medical provider and/or outpatient psychiatrist/provider to have this done. Please go to your scheduled outpatient appointment for aftercare treatment. If symptoms return or become worse, call the crisis line at and/or go to the nearest emergency room for evaluation. National Suicide Hotline [address] [facility] confidentiality statement: "The information contained in this communication, including attachments, is confidential, may be privileged, and is intended only for the use of the named recipient(s). Unauthorized use, disclosure, forwarding or copying is strictly prohibited and may be unlawful. If you have received this communication in error, please notify me IMMEDIATELY at the phone number or pager listed above.
[2024-08-22] MEDS ORDERED: LORazepam 2 MG/ML INJ IM PRN (10:51)
== END 2024-08-22 11:51 | disposition home or self-care (01) | DRG 885 ==
LOC: EC 14:57 → 3MHU 08-18 00:45
PROVIDERS: ADMIT Psychiatry & Neurology Psychiatry; ATTEND Psychiatry & Neurology Psychiatry
DX: F33.0 Major depressive disorder, recurrent, mild (principal); Z59.01 Sheltered homelessness; R45.851 Suicidal ideations; F15.10 Other stimulant abuse, uncomplicated; E66.811 Obesity, class 1; I10 Essential (primary) hypertension; R44.0 Auditory hallucinations; F90.9 Attention-deficit hyperactivity disorder, unspecified type; G47.00 Insomnia, unspecified; F41.1 Generalized anxiety disorder; F79 Unspecified intellectual disabilities; Z68.33 Body mass index [BMI] 33.0-33.9, adult; Z62.810 Personal history of physical and sexual abuse in childhood; Z79.899 Other long term (current) drug therapy; Z91.51 Personal history of suicidal behavior; Z71.51 Drug abuse counseling and surveillance of drug abuser; Z11.52 Encounter for screening for COVID-19; Z28.310 Unvaccinated for COVID-19
CPT/HCPCS: 80306; 81001; 82075; 87636; 99285

== ENCOUNTER 2024-08-26 20:28 | Emergency (ER) | payer OTHER ==
[2024-08-26 21:35] VITALS: RESP 18
--- NOTE | 2024-08-26 22:15 | ED ---
Psych HPI - General Source: patient Mode of arrival: ambulatory - History of Present Illness MD Complaint: suicidal ideation, feels depressed Onset/Timin -: days(s) Associated Psychiatric Symptoms: depression, suicidal ideation History of same: Yes Quality: getting worse Improves With: none Worsens With: drug use Context: recent drug abuse Associated Symptoms: denies other symptoms <Iván Holt - Last Filed: 08/26/24 22:19> <Mukul Koch - Last Filed: 08/27/24 10:23> - General Chief Complaint: Psychiatric Symptoms Stated Complaint: Mental Health Time Seen by Provider: 08/26/24 21:39 - History of Present Illness Initial Comments: This patient is a 24-year-old man with history of previous mood disorder who states that he has been feeling more depression since this morning and having suicidal thoughts. The patient states that he had been in the hospital for similar complaints last week. He had a recurrence of symptoms after he had done meth a few days ago and has not been sleeping well. (Iván Holt) - Related Data Previous Rx's Medication Instructions Recorded Sertraline [Zoloft] 50 mg PO DAILY 30 Days #30 tab 08/22/24 Allergies Allergy/AdvReac Type Severity Reaction Status Date / Time No Known Allergies Allergy Verified 08/26/24 21:32 Review of Systems ROS Other: All systems not noted in ROS Statement are negative. Constitutional: Denies: fever, chills, weakness Eyes: Denies: vision change Respiratory: Denies: cough, dyspnea Cardiovascular: Denies: chest pain, palpitations, edema Gastrointestinal: Denies: abdominal pain, nausea, vomiting Genitourinary: Denies: dysuria, hematuria Musculoskeletal: Denies: back pain Skin: Denies: rash Neurological: Denies: headache, weakness Psychiatric: Reports: depression, suicidal thoughts. Denies: auditory hallucinations, visual hallucinations, homicidal thoughts <Iván Holt - Last Filed: 08/26/24 22:19> ROS Other: All systems not noted in ROS Statement are negative. <Mukul Koch - Last Filed: 08/27/24 10:23> ROS Statement: Those systems with pertinent positive or pertinent negative responses have been documented in the HPI. Past Medical History Past Medical History: Hypertension Additional Past Medical History / Comment(s): insomnia History of Any Multi-Drug Resistant Organisms: None Reported Additional Past Surgical History / Comment(s): ablation Past Anesthesia/Blood Transfusion Reactions: No Reported Reaction Past Psychological History: ADD/ADHD, Bipolar Smoking Status: Never smoker Past Alcohol Use History: None Reported Past Drug Use History: None Reported <Iván Holt - Last Filed: 08/26/24 22:19> General Exam Limitations: no limitations General appearance: alert, in no apparent distress Head exam: Present: atraumatic, normocephalic Eye exam: Present: normal appearance. Absent: scleral icterus, conjunctival injection Neck exam: Present: normal inspection Respiratory exam: Present: normal lung sounds bilaterally. Absent: respiratory distress, wheezes, rales, rhonchi, stridor, accessory muscle use Cardiovascular Exam: Present: regular rate, normal rhythm, normal heart sounds. Absent: systolic murmur, diastolic murmur, rubs, gallop GI/Abdominal exam: Present: soft. Absent: distended, tenderness, guarding, rebound Extremities exam: Present: normal inspection, normal capillary refill. Absent: pedal edema, calf tenderness Back exam: Present: normal inspection Neurological exam: Present: alert Psychiatric exam: Present: depressed, suicidal ideation. Absent: agitated, anxious, homicidal ideation Skin exam: Present: warm, dry, intact, normal color. Absent: rash <Iván Holt - Last Filed: 08/26/24 22:19> Course Vital Signs 08/26/24 08/27/24 21:33 02:00 Temperature 97.3 F L Pulse Rate 62 68 Respiratory 18 18 Rate Blood Pressure 120/78 115/70 O2 Sat by Pulse 98 97 Oximetry Medical Decision Making <CatarinokasiIván - Last Filed: 08/26/24 22:19> <Mukul Koch - Last Filed: 08/27/24 10:23> - Medical Decision Making Was pt. sent in by a medical professional or institution (, PA, IP COUNSEL, urgent care, hospital, or jail...) When possible be specific @ -[No] Did you speak to anyone other than the patient for history (EMS, parent, family, police, friend...)? What history was obtained from this source @ -[No] Did you review nursing and triage notes (agree or disagree)? Why? @ -[I reviewed and agree with nursing and triage notes] Were old charts reviewed (outside hosp., previous admission, EMS record, old EKG, old radiological studies, urgent care reports/EKG's, jail records)? Report findings @ -[No old charts were reviewed] Differential Diagnosis (chest pain, altered mental status, abdominal pain women, abdominal pain men, vaginal bleeding, weakness, fever, dyspnea, syncope, headache, dizziness, GI bleed, back pain, seizure, CVA, palpatations, mental health, musculoskeletal)? @ -[Differential Mental Health Depression, anxiety, bipolar, psychosis, schizophrenia, borderline personality, situational depression, adjustment disorder, behavioral disorder, brain tumor, malingering, substance abuse, encephalopathy, medication reaction, dementia, hypothyroidism, degenerative neurologic disorder, lupus.... This is not meant to be all-inclusive list EKG interpreted by me (3pts min.). @ -[As above] X-rays interpreted by me (1pt min.). @ -[None done] CT interpreted by me (1pt min.). @ -[None done] U/S interpreted by me (1pt. min.). @ -[None done] What testing was considered but not performed or refused? (CT, X-rays, U/S, labs)? Why? @ -[None] What meds were considered but not given or refused? Why? @ -[None] Did you discuss the management of the patient with other professionals (professionals i.e. , PA, IP COUNSEL, lab, RT, psych nurse, social media marketing analyst, driller helper, teacher, boating safety officer, correctional casework specialist)? Give summary @ -[No] Was smoking cessation discussed for >3mins.? @ -[No] Was critical care preformed (if so, how long)? @ -[No] Were there social determinants of health that impacted care today? How? (Homelessness, low income, unemployed, alcoholism, drug addiction, transportation, low edu. Level, literacy, decrease access to med. care, senior care, rehab)? @ -[No] Was there de-escalation of care discussed even if they declined (Discuss DNR or withdrawal of care, Hospice)? DNR status @ -[No] What co-morbidities impacted this encounter? (DM, HTN, Smoking, COPD, CAD, Cancer, CVA, ARF, Chemo, Hep., AIDS, mental health diagnosis, sleep apnea, morbid obesity)? @ -[None] Was patient admitted / discharged? Hospital course, mention meds given and route, prescriptions, significant lab abnormalities, going to OR and other pertinent info. @ -[Patient is pending EPS evaluation at time of shift change (Iván Holt) Was patient admitted / discharged? Hospital course, mention meds given and route, prescriptions, significant lab abnormalities, going to OR and other pertinent info. @ -Patient was signed out to me at 7 AM. EPS evaluated the patient and it was determined with the psychiatrist that the patient could be given a safety plan and everybody was in agreement patient was given a safety plan and patient was discharged home Undiagnosed new problem with uncertain prognosis? @ -No Drug Therapy requiring intensive monitoring for toxicity (Heparin, Nitro, Insulin, Cardizem)? @ -No Were any procedures done? @ -No Diagnosis/symptom? @ -Suicidal ideations Acute, or Chronic, or Acute on Chronic? @ -Acute Uncomplicated (without systemic symptoms) or Complicated (systemic symptoms)? @ -Complicated Side effects of treatment? @ -No Exacerbation, Progression, or Severe Exacerbation? @ -No Poses a threat to life or bodily function? How? (Chest pain, [place], [place], pneumonia, PE, COPD, DKA, ARF, appy, cholecystitis, CVA, Diverticulitis, Homicidal, Suicidal, threat to staff... and all critical care pts) @ -No (Mukul Koch) Disposition <Iván Holt - Last Filed: 08/26/24 22:19> Is patient prescribed a controlled substance at d/c from ED?: No Time of Disposition: 10:23 <Mukul Koch - Last Filed: 08/27/24 10:23> Clinical Impression: Suicidal ideation Disposition: HOME SELF-CARE Referrals: None,Stated [Primary Care Provider] - 1-2 days
[2024-08-27 11:25] VITALS: BP 145/84; PULSE 56; TEMP 97.9
== END 2024-08-27 11:25 | disposition home or self-care (01) ==
LOC: EC 20:28
DX: R45.851 Suicidal ideations (principal)
CPT/HCPCS: 82075; 99285